=== PATIENT | female | born 1940 | race Caucasian/White ===

== ENCOUNTER → 2023-02-11 09:12 | Outpatient (BNVA) | payer MEDICARE, SELFPAY | PROVIDERS: Referring Provider Family Medicine; Visit Provider Nurse Practitioner Family | DX: L85.3 Xerosis cutis (principal); D22.5 Melanocytic nevi of trunk; L81.4 Other melanin hyperpigmentation; L21.8 Other seborrheic dermatitis; L82.0 Inflamed seborrheic keratosis; Z12.83 Encounter for screening for malignant neoplasm of skin; L57.8 Other skin changes due to chronic exposure to nonionizing radiation; L82.1 Other seborrheic keratosis | CPT/HCPCS: 99204 ==

== ENCOUNTER 2023-05-02 12:22 | Outpatient (CLI) | payer MEDICARE, SELFPAY ==
--- NOTE | 2023-05-02 12:36 | CT_ITS ---
WS: [id number] CT NECK TECHNIQUE: Contrast-enhanced CT of the neck with coronal and sagittal reformatted images. CLINICAL INFORMATION: OTHER DISEASES OF VOCAL CORDS COMPARISON: None. DLP: 120.[address] scans at [facility] use at least one of these dose optimization techniques: automated e xposure control; mA and/or kV adjustment per patient size (includes targeted exams where dose is matc hed to clinical indication); or iterative reconstruction. FINDINGS: Mastoid air cells are well aerated. Paranasal sinuses are well aerated. Normal posterior nasopharynx. Normal parapharyngeal fat. Parotid glands are normal. Normal submandibular glands. Tongue base is no rmal in appearance. No evidence of supraglottic or glottic mass. Normal vallecula and piriform sinuses. Normal subglottic airway. Thyroid gland appears normal. Lung apices are well aerated. Osteopenia. Straightening of the normal cervical lordosis. CT/CT neck w con* [id number] IMPRESSION: 1. Normal salivary glands. 2. No cervical lymphadenopathy. 3. No evidence of supraglottic or glottic mass. 4. No acute neck findings.
[2023-05-02 13:09] LABS: Blood Urea Nitrogen 27 mg/dL (8-23)
[2023-05-02] MEDS: iohexol 350 mg/mL 500 mL Btl (per mL) IV (13:24)
== END 2023-05-02 12:23 | disposition home or self-care (01) ==
PROVIDERS: PCP Family Medicine; Visit Provider Specialist
DX: J38.3 Other diseases of vocal cords (principal)
CPT/HCPCS: 70491; 82565; 84520; Q9967

== ENCOUNTER 2023-05-11 09:44 | Outpatient (RCR) | payer MEDICARE, SELFPAY | END 2023-05-16 23:59 | disposition home or self-care (01) | LOC: SST 09:44 | PROVIDERS: PCP Family Medicine; Visit Provider Specialist | DX: R49.0 Dysphonia (principal) | CPT/HCPCS: 92507; 92524 ==

== ENCOUNTER 2023-05-17 06:00 | Outpatient (RCR) | payer MEDICARE, SELFPAY | END 2023-06-16 23:59 | disposition home or self-care (01) | LOC: SST 06:00 | PROVIDERS: PCP Family Medicine; Visit Provider Specialist | DX: R49.0 Dysphonia (principal); J38.3 Other diseases of vocal cords; J38.7 Other diseases of larynx; J37.0 Chronic laryngitis; R49.8 Other voice and resonance disorders | CPT/HCPCS: 92507 ==

== ENCOUNTER → 2023-05-23 14:32 | Outpatient (BNVA) | payer MEDICARE, SELFPAY | PROVIDERS: Visit Provider Internal Medicine | DX: I44.1 Atrioventricular block, second degree (principal); I25.2 Old myocardial infarction | CPT/HCPCS: 93005; 99204 ==

== ENCOUNTER 2023-06-01 09:31 | Outpatient (CLI) | payer MEDICARE, SELFPAY ==
--- NOTE | 2023-06-01 | ECG_ITS ---
[facility] Test Date: 2023-06-01 Pat Name: Opal Alcantara Department: Room: Gender: Female Founder And Chief Technical Officer: : 1940 Requested By: Aleks Corley Order Number: [id number] Elif MD: Aleks Corley M.D. Interpretive Statements NAME OF STUDY: LEXISCAN SESTAMIBI STRESS TEST INDICATION: [Chest Pain] Procedure: At the baseline, the blood pressure was 202/109 mmHg with a heart rate of 57 bpm. The electrocardiogram showed sinus bradycardia normal axis with normal ST and T's. The Lexiscan was infused over a period of 20 seconds. A total of 0.4 mg of Lexiscan was infused. The stress phase was continued for a total of 5 minutes. Heart rate was at the end of stress phase was 65 bpm and a blood pressure of 133/72 mmHg. The EKG at the peak infusion revealed normal sinus rhythm with no significant ST-T wave changes. Sestamibi was injected 20 seconds after the Lexiscan infusion. Blood pressure at the end of recovery phase was 133/72 mmHg with a heart rate of 65 bpm. Conclusion: 1. Normal EKG response to Lexiscan infusion 2. No Lexiscan induced chest pain or cardiac arrhythmia. 3. Normal blood pressure and heart rate response. 4. Sestamibi/sestamibi perfusion scan pending; see separate report. Electronically Signed On 06-22-2023 14:37:19 CDT by Aleks Corley M.D. [id number]
[2023-06-01 09:47] LABS: Glucose Point of Care 91 mg/dL (70-110)
[2023-06-01 09:48] VITALS: BMI 21.9
--- NOTE | 2023-06-01 09:51 | NMCV_ITS ---
NM brielle perf SPECT r/s* [id number] Opal Alcantara Age: 83 Gender: F : 1940 Exam Date: 06/01/2023 10:58 Ordering Phys: Aleks Corley M.D ([email or web address]) Technologist: SUNI De La Cruz Exam Location: [facility] Indications: SHORTNESS OF BREATH, CHEST PAIN STRESS TEST [facility] IMAGE PROTOCOL Rest/Stress 1 Lexiscan Day Radiopharmaceutical Dose (mCi) Administration Site Administered by Rest: Tc-99m 10.3 IV SUNI De La Cruz Sestamibi Stress:Tc-99m 32.4 IV SUNI Esparza Sestamibi Rest: 01-Jun-2023 60 Discovery 630 Stress: 01-Jun-2023 30 Discovery 630 0.4mg Lexiscan. Images obtained in supine and prone position. SPECT RESULTS Technical Quality: Excellent Raw Data Analysis: Normal Image Corrections: No attenuation or motion correction applied Summed Stress Score: 1 Summed Rest Score: 0 Summed Difference Score: 1 PERFUSION FINDINGS SPECT images demonstrate homogeneous tracer distribution throughout the myocardium. FUNCTIONAL RESULTS (calculated via Gated SPECT) Stress Image LV EF (%): 91 Stress EDV (mL):44 TID: 1.18 Stress ESV (mL):4 FUNCTIONAL FINDINGS: There is normal left ventricular systolic function. IMPRESSIONS 1. Normal myocardial perfusion imaging with no evidence of ischemia 2. LV systolic function is normal. Aleks Corley MD (Electronically Signed) Final Date: 02 June 2023 18:12 S
[2023-06-01] MEDS: regadenoson 0.4 Mg/5 ml Syringe IVP (11:41)
[2023-06-01] MEDS: aminophylline 25 mg/mL SDV 10 mL IVP (11:57)
[2023-06-01 12:39] VITALS: BP 133/72; PULSE 66
== END 2023-06-01 09:32 | disposition home or self-care (01) ==
LOC: CDL 09:31
PROVIDERS: Absent Provider Nurse Practitioner Family; PCP Family Medicine; Visit Provider Internal Medicine
DX: R07.9 Chest pain, unspecified (principal); R06.02 Shortness of breath
CPT/HCPCS: 36415; 36416; 78452; 82962; 93017; 96374; 96375; A9500; J0280; J2785

== ENCOUNTER 2023-06-06 13:18 | Outpatient (CLI) | payer MEDICARE, SELFPAY ==
--- NOTE | 2023-06-06 13:45 | USCV_ITS ---
Opal Alcantara Age: 83 Gender: F : 1940 Exam Date: 06/06/2023 13:59 Ordering Phys: Aleks Corley M.D ([email or web address]) Technologist: Teagan Max Exam Location: [facility] [place] Indication: CP BP: 120 / 76 HR: 62 Rhythm: Sinus Technical Quality: Good MEASUREMENTS (Male / Female) Normal Values 2D ECHO LV Diastolic Diameter PLAX 3.7 cm 4.2 - 5.9 / 3.9 - 5.3 cm LV Systolic Diameter PLAX 1.8 cm IVS Diastolic Thickness 1.3 cm 0.6 - 1.0 / 0.6 - 0.9 cm IVS Systolic Thickness 1.8 cm LVPW Diastolic Thickness 1.1 cm 0.6 - 1.0 / 0.6 - 0.9 cm LVPW Systolic Thickness 1.8 cm LVOT Diameter 2.0 cm LV Ejection Fraction 2D Teich 83.1 % LV Ejection Fraction MOD 2C 69.2 % LV Ejection Fraction 2C AL 70.4 % LA Diameter 3.1 cm LA Width 3.2 cm RA Width 2.8 cm RA Height 4.7 cm Aorta at Sinotubular Diameter 2.7 cm IVC Diameter 1.4 cm M-MODE Aortic Annulus Diameter 2.7 cm LA Ao Ratio MM 1.3 MV E Point Septal Separation 0.1 cm DOPPLER AV Peak Velocity 132.0 cm/s LVOT Peak Velocity 130.0 cm/s AV Area Cont Eq vti 3.5 cm squared AV Area Cont Eq pk 3.2 cm squared MV Peak Velocity 123.0 cm/s MV Area PHT 2.7 cm squared Mitral E to A Ratio 0.6 MV E' Velocity 41.5 cm/s Mitral E to MV E' Ratio 11.2 Mitral E to LV E' Lateral Ratio 9.6 Mitral E to LV E' Septal Ratio 13.4 TR Peak Velocity 135.0 cm/s TR Peak Gradient 7.3 mmHg Right Atrial Pressure 5.0 mmHg Pulmonary Artery Systolic Pressu 12.3 mmHg PV Peak Velocity 54.0 cm/s RV Acceleration Time 0.1 s RV Ejection Time 0.3 s RV AcT/ET 0.2 FINDINGS Left Ventricle Left ventricle is normal in size. LV systolic function is normal with EF of 55 to 60%. No regional wall motion abnormalities are seen. Grade 1 diastolic dysfunction Right Ventricle Normal in size and function Right Atrium Normal in size Left Atrium Normal in size Mitral Valve Structurally normal mitral valve. Mild mitral regurgitation. Aortic Valve Structurally normal aortic valve. No significant stenosis or regurgitation Tricuspid Valve Mild tricuspid regurgitation. Insufficient TR jet to evaluate RVSP. Pulmonic Valve Not well visualized Pericardium Normal Aorta Normal in size IVC Appears to be normal CONCLUSIONS LV systolic function is normal with EF 55 to 60%. Grade 1 diastolic dysfunction. Mild mitral regurgitation Mild tricuspid regurgitation No comparison studies are available Aleks Corley MD (Electronically Signed) Final Date: 24 June 2023 13:08 S
== END 2023-06-06 13:19 | disposition home or self-care (01) ==
PROVIDERS: PCP Family Medicine; Visit Provider Internal Medicine
DX: R06.02 Shortness of breath (principal); R07.9 Chest pain, unspecified; I08.1 Rheumatic disorders of both mitral and tricuspid valves
CPT/HCPCS: 93306

== ENCOUNTER 2023-06-17 06:00 | Outpatient (RCR) | payer MEDICARE, SELFPAY | END 2023-07-16 23:59 | disposition home or self-care (01) | LOC: SST 06:00 | PROVIDERS: PCP Family Medicine; Visit Provider Specialist | DX: J38.3 Other diseases of vocal cords (principal) | CPT/HCPCS: 92507 ==

== ENCOUNTER 2023-07-17 06:00 | Outpatient (RCR) | payer MEDICARE, SELFPAY | END 2023-08-04 09:16 | disposition home or self-care (01) | LOC: SST 06:00 | PROVIDERS: PCP Family Medicine; Visit Provider Specialist | DX: J38.3 Other diseases of vocal cords (principal) | CPT/HCPCS: 92507 ==

== ENCOUNTER → 2023-07-18 12:45 | Outpatient (BNVA) | payer MEDICARE, SELFPAY | PROVIDERS: PCP Family Medicine; Visit Provider Internal Medicine | DX: R07.89 Other chest pain (principal) | CPT/HCPCS: 99213; 99214 ==

== ENCOUNTER 2023-08-23 09:59 | Outpatient (CLI) | payer MEDICARE, SELFPAY ==
--- NOTE | 2023-08-23 10:12 | XR_ITS ---
WS: [id number] Chest 2 views, 08/23/2023 Clinical Data: CHEST PAIN, LEFT Comparison: None. Findings: No nodules, masses or effusions are seen. The heart is normal. The pulmonary vascularity is not increased. No pneumonia or pneumothorax is seen. The aortic arch and descending thoracic aorta s how tortuosity. There are clips in the right upper quadrant from a cholecystectomy. Impression: Atherosclerosis.
== END 2023-08-23 10:00 | disposition home or self-care (01) ==
LOC: RAD 10:03
PROVIDERS: PCP Family Medicine; Visit Provider Nurse Practitioner Family
DX: R07.89 Other chest pain (principal); I70.90 Unspecified atherosclerosis
CPT/HCPCS: 71046

== ENCOUNTER 2023-10-26 13:08 | Emergency (ER) | payer MEDICARE, SELFPAY ==
[2023-10-26 13:17] VITALS: BMI 22.8
[2023-10-26 13:20] VITALS: BP 147/72; PULSE 77; RESP 16; TEMP 37.1; O2SAT 99
--- NOTE | 2023-10-26 13:47 | XRR_ITS ---
PROCEDURE INFORMATION: Exam: XR Left Shoulder Exam date and time: 10/26/2023 2:10 PM Age: 83 years old Clinical indication: Left; Patient HX: Lt shoulder and lt rib pain into armpit, unable to lift lt arm, denies injury TECHNIQUE: Imaging protocol: Radiologic exam of the left shoulder. Views: 2 or more views. COMPARISON: CR XR ribs LT mn 3V w CXR1V [id number] 10/26/2023 2:10 PM FINDINGS: Bones/joints: No fracture or malalignment. Mild degenerative changes. Soft tissues: No acute findings. XR/XR shoulder LT min 2V* [id number] IMPRESSION: No acute findings.
--- NOTE | 2023-10-26 13:47 | XRR_ITS ---
PROCEDURE INFORMATION: Exam: XR Left Ribs with PA Chest Exam date and time: 10/26/2023 2:10 PM Age: 83 years old Clinical indication: Chest wall pain; Left; Patient HX: Lt shoulder and lt rib pain into armpit, unable to lift lt arm, denies injury TECHNIQUE: Imaging protocol: Radiologic exam of the left ribs with PA chest. Views: 3 views COMPARISON: CR XR chest 2V* [id number] 08/23/2023 10:38 AM FINDINGS: Lungs: No focal consolidation. Pleural spaces: No pleural effusion. No pneumothorax. Heart/Mediastinum: No cardiomegaly. Bones/joints: No displaced rib fractures. XR/XR ribs LT mn 3V w CXR1V [id number] IMPRESSION: No displaced rib fractures.
--- NOTE | 2023-10-26 15:27 | W.ED.EXTPRO ---
HPI - Extremity Problem General: Chief complaint: Extremity Problem,Nontraumatic Stated complaint: upper back/abd pain Time Seen by Provider: 10/26/23 15:20 History of Present Illness: 83-year-old female comes in today with pain to the left shoulder area. Patient reports pain starts in the back of her shoulder and wraps around to the front. Patient has increased pain with movement of the shoulder. Patient has had pain on and off for 2 weeks now. Patient was first seen by her primary care and had x-rays done and then on follow-up seen the physician and at that time they felt that she had a rib out of place and did not adjustment in the office. Patient then followed up with chiropractor's office on Tuesday and he repeated the adjustment but since his adjustment he has had increased pain and discomfort. Patient has had difficulty resting at night and finding a comfortable spot due to the pain. Patient appears nontoxic. Patient moves extremity with minimal discomfort. Distal pulses and sensation are intact. No edema is noted. Review of Systems General: Reports: 10 or more systems reviewed and unremarkable except in HPI and below Musc: Reports: joint pain (Left shoulder) Physical Exam Const: COMMON NORMALS: alert HENMT: COMMON NORMALS: normocephalic HEAD & SCALP: normocephalic Neck/C-Spine: COMMON NORMALS: full ROM Resp: COMMON NORMALS: normal respiratory effort Cardio: COMMON NORMALS: regular rate and regular rhythm RATE: regular rate RHYTHM: regular rhythm Back/Pelvis: THORACIC SPINE/UPPER BACK: Yes paraspinal muscle tenderness Thoracic paraspinal muscle tenderness: left Extremity: LEFT UPPER EXTREMITY: Yes shoulder joint (Increased pain with abduction) Left shoulder joint: Yes ROM Neuro: SENSORIUM/ORIENTATION: Yes alert Skin: COMMON NORMALS: turgor normal GENERAL SKIN EXAM: turgor normal Course Vital Signs: Vital signs: Vital Signs Temperature 98.7 F 10/26/23 13:20 Pulse Rate 77 10/26/23 13:20 Respiratory Rate 16 10/26/23 13:20 Blood Pressure 147/72 10/26/23 13:20 Pulse Oximetry 99 10/26/23 13:20 Oxygen Delivery Me thod Room Air 10/26/23 13:20 MDM - Extremity (Nontraumatic) Medical Decision Making 83-year-old female comes in today with complaints of pain to the left shoulder. Patient has had increased pain since a chiropractic adjustment on Tuesday. Distal pulses and sensation are intact. Tenderness is noted in the left upper back on palpation. Patient has increased pain with abduction of the left shoulder. Distal pulses and sensation are intact. Vital signs are normal except for some elevated blood pressure. Reviewed exam with patient and family with recommendations for treatment and follow-up. Differential diagnosis includes but not limited to muscle strain, intervertebral disc disease, rib fracture, osteoarthritis. X-rays were unremarkable. Patient was stable and discharged to home with recommendations for follow-up or return to the ER. Lab Data Radiology Impressions Ribs X-Ray 10/26/23 13:47 IMPRESSION: No displaced rib fractures. Shoulder X-Ray 10/26/23 13:47 IMPRESSION: No acute findings. All radiology interpretation(s) finalized by discharge Discharge Plan Discharge Patient Disposition: Home Clinical Impression: Muscle strain of left shoulder region Qualifiers: Encounter type: initial encounter Qualified Code(s): S46.912A - Strain of unspecified muscle, fascia and tendon at shoulder and upper arm level, left arm, initial encounter Condition: Stable Prescriptions: New hydrocodone-acetaminophen 5-325 mg tablet 1 tab PO Q8H PRN (Reason: pain (scale score 7-10)) Qty: 7 0RF No Action levothyroxine [Synthroid] 88 mcg tablet 88 mcg PO DAILY isosorbide mononitrate 30 mg tablet extended release 24 hr 30 mg PO DAILY nitroglycerin 0.4 mg tablet, sublingual 0.4 mg sublingual Q5M PRN Rx Instructions: do not exceed 3 doses per episode fluticasone propion-salmeterol [Advair Diskus] 250-50 mcg/dose blister with device 1 inh inhalation BID Joint Support Complex 660-751-89-0.5 mg capsule PO albuterol sulfate [ProAir HFA] 90 mcg/actuation HFA aerosol inhaler 2 puff inhalation Q6H PRN escitalopram oxalate 10 mg tablet 10 mg PO DAILY omeprazole 40 mg capsule,delayed release(DR/EC) 40 mg PO DAILY tranexamic acid 650 mg tablet 650 mg PO Q12H Metamucil 3.4 gram/5.4 gram powder 1 tbsp PO DAILY Rx Instructions: mix into at least 8 oz of water or juice before administering lysine [L-Lysine] 500 mg tablet 1,000 mg PO DAILY el-ezj-foisr-calcium carb-K1 400 mcg-500 mg calcium-20 mcg tablet PO Forrify Prebiotic PO Beano 400 unit tablet 800 unit PO DAILY docusate sodium 100 mg capsule 100 mg PO DAILY B Complex 1.7-20-2-1.2 mg/mL liquid sublingual aspirin 81 mg tablet,delayed release (DR/EC) 81 mg PO DAILY Qty: 90 3RF magnesium glycinate 100 mg tablet 300 mg PO BID Discharge Orders: Discharge ED (Routine); Ordered 10/26/23 Ordered By: Kelton Britt Referrals: Reese Mccormick MD [Primary Care Provider] - Discharge Diet: Usual diet Discharge Activity: Increase activity as tolerated Patient Instructions: Musculoskeletal Pain (ED) Activity Restrictions/Additional Instructions: Use ice or heat for pain. Use acetaminophen and ibuprofen to control pain. Use hydrocodone for severe pain. Try to maintain activity as normal. Follow-up with primary care for further instructions. Return to ED for worsening symptoms or new concerns. Coding Level of Care Code ED Business Operations Director for Jeremy Palomares
[2023-10-26] MEDS: HYDROcodone-acetaminophen 5-325 mg Tablet 1 TAB PO (15:53)
== END 2023-10-26 15:55 | disposition home or self-care (01) ==
PROVIDERS: Emergency Provider Nurse Practitioner Family; PCP Family Medicine
DX: S46.912A Strain of unspecified muscle, fascia and tendon at shoulder and upper arm level, left arm, initial encounter (principal); Z79.82 Long term (current) use of aspirin; X58.XXXA Exposure to other specified factors, initial encounter
CPT/HCPCS: 71101; 73030; 99284

== ENCOUNTER → 2024-02-20 11:21 | Outpatient (BNVA) | payer MEDICARE, SELFPAY | PROVIDERS: PCP Family Medicine; Visit Provider Nurse Practitioner Family | DX: D48.5 Neoplasm of uncertain behavior of skin (principal); L57.0 Actinic keratosis; Z12.83 Encounter for screening for malignant neoplasm of skin; L85.3 Xerosis cutis; D22.5 Melanocytic nevi of trunk; L81.4 Other melanin hyperpigmentation; L82.1 Other seborrheic keratosis; L21.8 Other seborrheic dermatitis; L29.8 Other pruritus | CPT/HCPCS: 11102; 17000; 99214 ==

== ENCOUNTER 2024-03-17 08:10 | Emergency (ER) | payer MEDICARE, SELFPAY ==
[2024-03-17] VITALS (7 sets, daily range): BP systolic 117–163; BP diastolic 62–75; PULSE 67–75; RESP 18–25; TEMP 36.6; O2SAT 96–100; BMI 21.9
--- NOTE | 2024-03-17 08:29 | XRR_ITS ---
PROCEDURE INFORMATION: Exam: XR Chest Exam date and time: 03/17/2024 8:45 AM Age: 84 years old Clinical indication: Dyspnea; Additional info: Dyspnea/cough TECHNIQUE: Imaging protocol: Radiologic exam of the chest. Views: 1 view. COMPARISON: CR XR ribs LT mn 3V w CXR1V [id number] 10/26/2023 2:10 PM FINDINGS: Lungs: Unremarkable. No consolidation. Pleural spaces: Unremarkable. No pleural effusion. No pneumothorax. Heart/Mediastinum: Unremarkable. No cardiomegaly. Bones/joints: Unremarkable. XR/XR chest 1V portable [id number] IMPRESSION: No acute findings.
--- NOTE | 2024-03-17 08:31 | ECG_ITS ---
[facility] Test Date: 2024-03-17 Pat Name: Opal Alcantara Department: Room: Gender: Female Records Associate: : 1940 Requested By: Jacob Rg Order Number: [id number] Reading MD: Thiago George M.D. Measurements Intervals [place] Rate: 72 P: 92 SC: 168 QRS: -22 QRSD: 84 T: 79 QT: 378 QTc: 414 Interpretive Statements SINUS RHYTHM WITH OCCASIONAL SUPRAVENTRICULAR PREMATURE COMPLEXES ANTEROSEPTAL MYOCARDIAL INFARCTION , OF INDETERMINATE AGE [40+ ms Q WAVE IN V1-V4] Compared to ECG 05/23/2023 14:41:26 No significant changes Electronically Signed On 03-17-2024 9:28:05 CDT by Thiago George M.D. [id number]
--- NOTE | 2024-03-17 08:51 | ED_ITS ---
HPI - SOB/Dyspnea 2 General: Chief Complaint: Shortness of Breath/Dyspnea Stated Complaint: sob Time Seen by Provider: 03/17/24 08:16 Source: patient Mode of arrival: ambulatory History of Present Illness: HPI Narrative: 84-year-old female presents emergency ro om complaining of shortness of breath. Sudden onset of shortness of breath morning after she got up and had had coffee. She has some numbness and tingling. She has a history of asthma she had tried using her rescue inhaler with no improvement. She is not on any anticoagulants has no history of DVT or PE. She denies chest or abdominal pain no fever sweats or chills MD elicited complaint: shortness of breath and cough Pertinent past history: asthma Associated symptoms: Deny abdominal pain, chest congestion, chest pain, cough, diaphoresis, dizziness, extremity pain, fever(s), hemoptysis, lightheadedness, myalgias, nausea, orthopnea, palpitations, paresthesias, polydipsia, polyuria, rash, sense of impending doom, syncope or vomiting Treatment prior to arrival: none Review of Systems 2 Const: Denies: fever(s), chills or diaphoresis Card: Denies: chest pain, palpitations, lightheadedness, syncope or orthopnea Resp: Reports: dyspnea; Denies: productive cough, non-productive cough, wheezing, hemoptysis or chest congestion GI: Denies: abdominal pain, nausea or vomiting : Denies: flank pain, dysuria, urinary frequency or urinary urgency Musc: Denies: neck pain, back pain or extremity pain Skin/Breast: Denies: rash Neuro: Denies: dizziness Endo: Denies: polyuria or polydipsia PFSH ED 2 PFSH: Medical History Anxiety disorder Asthma Depression GERD (gastroesophageal reflux disease) Hypothyroidism Cataract Surgical History H/O: hysterectomy H/O lumpectomy History of bowel resection Physical Exam 2 Const: COMMON NORMALS: no acute distress GENERAL APPEARANCE: cooperative and comfortable ORIENTATION/CONSCIOUSNESS: Yes awake, Yes oriented to person, Yes oriented to place and Yes oriented to time HENMT: COMMON NORMALS: normocephalic, atraumatic and hearing grossly normal bilaterally HEAD & SCALP: normocephalic and atraumatic Resp: COMMON NORMALS: normal respiratory effort, No retractions, No use of accessory muscles and clear to auscultation bilaterally AUSCULTATION: clear to auscultation bilaterally Cardio: COMMON NORMALS: regular rate, regular rhythm and No murmurs present (Cardio) RATE: regular rate RHYTHM: regular rhythm GI: COMMON NORMALS: Soft to palpation and No hepatosplenomegaly present A USCULTATION: Yes normoactive bowel sounds PALPATION: Yes Soft to palpation, No Tenderness to palpation present (GI), No Guarding due to palpation present (GI) and Yes No hepatosplenomegaly present Extremity: COMMON NORMALS: normal to inspection, capillary refill normal, no clubbing, cyanosis or edema, no calf tenderness and no pedal edema Neuro: SENSORIUM/ORIENTATION: Yes oriented to person, Yes oriented to place and Yes oriented to time Skin: COMMON NORMALS: no rashes or lesions noted GENERAL SKIN EXAM: no rashes or lesions noted Course 2 Vital Signs: Vital signs: Vital Signs Temperature 97.8 F 03/17/24 08:19 Pulse Rate 71 03/17/24 11:25 Respiratory Rate 25 H 03/17/24 09:22 Blood Pressure 117/62 03/17/24 11:25 Pulse Oximetry 97 03/17/24 11:25 Oxygen Delivery Me thod Room Air 03/17/24 09:22 MDM - SOB/Dyspnea Medical Decision Making EKG and cardiac enzymes not show any sign of acute coronary syndrome. Patient was hyperventilating significantly on arrival as well as having carpal pedal spasm. This improved with the Ativan given. Chest x-ray is unremarkable. Will discharge patient home Ativan to use as needed. Family asked about checking UA. Urine sample was collected the nurse to deliver to the lab and called them to have it done. They did not want to wait for the result and they were discharged home with plan to call them later. Unfortunately lab discarded the sample and it was not run we will contact the family have him follow-up with primary care doctor if they wish to have urine screened. Medical Records I reviewed the patient's medical records. Lab Data I reviewed the patient's lab results. 03/17/24 08:45 03/17/24 08:45 Labs/Radiology: Radiology Impressions Chest X-Ray 03/17/24 08:29 IMPRESSION: No acute findings. Laboratory Results WBC 7.17 10^3/uL (3.29-11.43) 03/17/24 08:45 RBC 4.63 10^6/uL (3.85-5.65) 03/17/24 08:45 Hgb 13.10 g/dL (11.27-16.99) 03/17/24 08:45 Hct 39.9 % (36-47) 03/17/24 08:45 MCV 86.2 fl (85-98) 03/17/24 08:45 MCH 28.3 pg (27-33) 03/17/24 08:45 MCHC 32.8 g/dL (30-55) 03/17/24 08:45 RDW 14.2 % (12.1-15.1) 03/17/24 08:45 Plt Count 219 10^3/cmm (157-399) 03/17/24 08:45 MPV 9.1 fL (7.4-10.4) 03/17/24 08:45 Neut % (Auto) 61.3 % 03/17/24 08:45 Lymph % (Auto) 26.2 % 03/17/24 08:45 Wolfe % (Auto) 9.3 % 03/17/24 08:45 Eos % (Auto) 1.5 % 03/17/24 08:45 Baso % (Auto) 0.7 % 03/17/24 08:45 Neut # (Auto) 4.39 10^3/uL (1.8-7.7) 03/17/24 08:45 Lymph # (Auto) 1.9 10^3/uL (0.8-4.8) 03/17/24 08:45 Wolfe # (Auto) 0.7 10^3/uL (0.2-0.9) 03/17/24 08:45 Eos # (Auto) 0.1 10^3/uL (0.0-0.8) 03/17/24 08:45 Baso # (Auto) 0.1 10^3/uL (0.0-0.1) 03/17/24 08:45 Nucleated RBC % (auto) 0 % 03/17/24 08:45 Nucleated RBCs # 0.0 /100WBC 03/17/24 08:45 Specimen Type Arterial 03/17/24 09:05 Sample Site Radial, left 03/17/24 09:05 ABG pH 7.66 (7.35-7.45) H* 03/17/24 09:05 ABG pCO2 16.7 mmHg (35-45) L* 03/17/24 09:05 ABG pO2 106.0 mmHg (80.0-100.0) H 03/17/24 09:05 ABG PO2/FiO2 Ratio 0 03/17/24 09:05 ABG HCO3 18.9 mmol/L (22-26) L 03/17/24 09:05 ABG O2 Saturation > 100.0 03/17/24 09:05 ABG Base Excess 0.9 mmol/L (-2.0-2.0) 03/17/24 09:05 Amish Test Pos 03/17/24 09:05 A-a O2 Gradient 2.5 mmHg (5-10) L 03/17/24 09:05 Hematocrit 41.2 % (37-47) 03/17/24 09:05 Hgb O2 Saturation 98.6 % (95-100) 03/17/24 09:05 Carboxyhemoglobin 1.1 %THgb (0.4-20.1) 03/17/24 09:05 Methemoglobin 0.4 % (0.4-1.5) 03/17/24 09:05 Total Hemoglobin 13.4 g/dL (12-16) 03/17/24 09:05 Sodium 136.0 mmol/L (131-143) 03/17/24 09:05 Potassium 3.2 mmol/L (3.5-5.0) L 03/17/24 09:05 Glucose 103.0 mg/dL (70-115) 03/17/24 09:05 Ionized Calcium 1.1 mmol/L (1.1-1.4) 03/17/24 09:05 O2 Delivery Device Room air 03/17/24 09:05 FiO2 21.0 % 03/17/24 09:05 Donkey Doctor ID Walci 03/17/24 09:05 Sodium 137 mmol/L (136-145) 03/17/24 08:45 Potassium 3.9 mmol/L (3.5-5.1) 03/17/24 08:45 Chloride 103 mmol/L (98-107) 03/17/24 08:45 Carbon Dioxide 21 mmol/L (22-29) L 03/17/24 08:45 Anion Gap 16.9 (5-19) 03/17/24 08:45 BUN 24 mg/dL (8-23) H 03/17/24 08:45 Creatinine 0.8 mg/dL (0.5-0.9) 03/17/24 08:45 GFR Calculation Not Reportable 03/17/24 08:45 Glucose 107 mg/dL (65-115) 03/17/24 08:45 Calculated Osmolality 289 mOsm/kg (285-295) 03/17/24 08:45 Calcium 8.4 mg/dL (8.5-10.5) L 03/17/24 08:45 Total Bilirubin 0.4 mg/dL (0.15-1.2) 03/17/24 08:45 AST 26 U/L (0-32) 03/17/24 08:45 ALT 19 U/L (0-33) 03/17/24 08:45 Alkaline Phosphatase 94 U/L (35-105) 03/17/24 08:45 Troponin T Baseline 9 ng/L (0-10) 03/17/24 08:45 Troponin T 120 Minute 8.08 ng/L (0-10) 03/17/24 10:50 Delta Troponin T -0.92 ABS# (0-10) L 03/17/24 10:50 NT-Pro-B Natriuret Pep 368 pg/mL (0-450) 03/17/24 08:45 Total Protein 6.3 g/dL (6.6-8.7) L 03/17/24 08:45 Albumin 3.8 g/dL (3.5-5.2) 03/17/24 08:45 Globulin 2.5 g/dL (1.3-4.6) 03/17/24 08:45 All radiology interpretation(s) finalized by discharge Discharge Plan Discharge Patient Disposition: Home Clinical Impression: Hyperventilation syndrome Condition: Stable Prescriptions: New Ativan 1 mg tablet 1 mg PO Q8H PRN (Reason: anxiety) Qty: 10 0RF No Action levothyroxine [Synthroid] 88 mcg tablet 88 mcg PO DAILY isosorbide mononitrate 30 mg tablet extended release 24 hr 30 mg PO DAILY nitroglycerin 0.4 mg tablet, sublingual 0.4 mg sublingual Q5M PRN Rx Instructions: do not exceed 3 doses per episode fluticasone propion-salmeterol [Advair Diskus] 250-50 mcg/dose blister with device 1 inh inhalation BID Joint Support Complex [id number] mg capsule PO albuterol sulfate [ProAir HFA] 90 mcg/actuation HFA aerosol inhaler 2 puff inhalation Q6H PRN escitalopram oxalate 10 mg tablet 10 mg PO DAILY omeprazole 40 mg capsule,delayed release(DR/EC) 40 mg PO DAILY tranexamic acid 650 mg tablet 650 mg PO Q12H Metamucil 3.4 gram/5.4 gram powder 1 tbsp PO DAILY Rx Instructions: mix into at least 8 oz of water or juice before administering lysine [L-Lysine] 500 mg tablet 1,000 mg PO DAILY [id number] carb-K1 400 mcg-500 mg calcium-20 mcg tablet PO Forrify Prebiotic PO Beano 400 unit tablet 800 unit PO DAILY docusate sodium 100 mg capsule 100 mg PO DAILY B Complex 1.7-20-2-1.2 mg/mL liquid sublingual aspirin 81 mg tablet,delayed release (DR/EC) 81 mg PO DAILY Qty: 90 3RF magnesium glycinate 100 mg tablet 300 mg PO BID hydrocodone-acetaminophen 5-325 mg tablet 1 tab PO Q8H PRN (Reason: pain (scale score 7-10)) Qty: 7 0RF Discharge Orders: Discharge ED (Routine); Ordered 03/17/24 Ordered By: Jacob Hanna Referrals: Reese Mccormick MD [Primary Care Provider] - Discharge Diet: Usual diet Discharge Activity: Resume usual activity Patient Instructions: Hyperventilation (ED), Opioid Safety, Pain Management Activity Restrictions/Additional Instructions: Thank you for choosing [facility] for your healthcare needs today. It is very important that you follow up as instructed or that you return to the Emergency Department should you have concerns or if your condition changes or worsens in any way. You were seen today for shortness of breath. Your blood gases showed that you were hyperventilating. This will cause a sensation of severe anxiety as well as chest discomfort and a sensation of being very short of breath. Your cardiac enzymes and EKG did not show acute abnormality your chest x-ray was normal. You were given a prescription for Ativan to use as needed if you have any further episodes. If you have recurrent episodes like this you should try to slow your breathing by breathing anterior mouth and blowing out slowly through your nose. Follow-up with your primary care doctor. Coding Level of Care Code ED Wildlife Biology Technician for Jeermy Palomares
[2024-03-17 08:57] LABS: Basophils # 0.1 10^3/uL (0.0-0.1); Basophils % 0.7 %; Eosinophils # 0.1 10^3/uL (0.0-0.8); Eosinophils % 1.5 %; Hematocrit 39.9 % (36-47); Lymphocytes # 1.9 10^3/uL (0.8-4.8); Lymphocytes % 26.2 %; Mean Corpuscular HGB Conc 32.8 g/dL (30-55); Mean Corpuscular Hemoglobin 28.3 pg (27-33); Mean Corpuscular Volume 86.2 fl (85-98); Mean Platelet Volume 9.1 fL (7.4-10.4); Monocytes # 0.7 10^3/uL (0.2-0.9); Monocytes % 9.3 %; Neutrophils # 4.39 10^3/uL (1.8-7.7); Neutrophils % 61.3 %; Nucleated Red Blood Cells % 0 %; Platelet Count 219 10^3/cmm (157-399); Red Blood Count 4.63 10^6/uL (3.85-5.65); Red Cell Distribution Width 14.2 % (12.1-15.1); White Blood Count 7.17 10^3/uL (3.29-11.43)
[2024-03-17 09:16] LABS: Alveolar-Arterial Oxygen Gradi 2.5 mmHg (5-10); Arterial Blood Gas Hematocrit 41.2 % (37-47); Base Excess ABG 0.9 mmol/L (-2.0-2.0); Blood Gas Allen Test Pos; Blood Gas Operator Identificat WALCI; Blood Gas Sample Site Radial, left; Blood Gas Sample Type Arterial; Carboxyhemoglobin 1.1 %THgb (0.4-20.1); HCO3 ABG 18.9 mmol/L (22-26); HGB O2 Sat 98.6 % (95-100); Ionized Calcium Level - ABG 1.1 mmol/L (1.1-1.4); Methemoglobin 0.4 % (0.4-1.5); Oxygen Device ROOM AIR; Oxygen Saturation ABG > 100.0; PO2 FiO2 Ratio Arterial Blood 0; Potassium Level - ABG 3.2 mmol/L (3.5-5.0); Total Hemoglobin 13.4 g/dL (12-16)
[2024-03-17 09:17] LABS: ABG PCO2 16.7 mmHg (35-45); ABG PH Result 7.66 (7.35-7.45)
[2024-03-17 09:17] LABS: Alanine Aminotransferase 19 U/L (0-33); Albumin Level 3.8 g/dL (3.5-5.2); Alkaline Phosphatase 94 U/L (35-105); Blood Urea Nitrogen 24 mg/dL (8-23); Calcium 8.4 mg/dL (8.5-10.5); Carbon Dioxide 21 mmol/L (22-29); Chloride 103 mmol/L (98-107); Creatinine Clr Calc Pharmacy 41.3039; Globulin 2.5 g/dL (1.3-4.6); Glucose 107 mg/dL (65-115); Osmolality Calculated 289 mOsm/kg (285-295); Sodium 137 mmol/L (136-145); Total Bilirubin 0.4 mg/dL (0.15-1.2); Total Protein 6.3 g/dL (6.6-8.7)
[2024-03-17] MEDS: ipratropium-albuterol 3 mL Neb INHALATION (09:20)
[2024-03-17 09:21] LABS: Anion Gap 16.9 (5-19); Aspartate Amino Transferase 26 U/L (0-32); Potassium 3.9 mmol/L (3.5-5.1)
--- NOTE | 2024-03-17 09:31 | PC.NURSE ---
pt's daughter came to nurse with concern of pt having acute confusion since arrival to ED. pt AOx4 upon nurse assessment. Dr. Hanna notified.
--- NOTE | 2024-03-17 09:32 | PC.NURSE ---
pt family came to nurse's station for nurse assistance, states pt cannot breathe. upon this nurse's assessment pt very anxious, respirations tachypneic, deep, labored. 25/min, oxygen saturation 98% on room air. this nurse attempted to verbally de-escalate pt, pt unreceptive. this nurse informed Dr. Hanna, Dr. Hanna verbalized new order for Ativan & presented to patient's bedside.
[2024-03-17] MEDS: LORazepam 2 mg/mL INJ 10 mL MDV 1 MG IVP (09:37)
[2024-03-17 09:40] LABS: NT Pro B Type Natriuretic Pept 368 pg/mL (0-450)
[2024-03-17 10:53] LABS: Troponin(5th) Baseline 9 ng/L (0-10)
[2024-03-17 11:12] LABS: Troponin 5 2HR 8.08 ng/L (0-10)
[2024-03-17 11:13] LABS: Troponin 5 2HR Delta -0.92 ABS# (0-10)
== END 2024-03-17 11:33 | disposition home or self-care (01) ==
PROVIDERS: Emergency Provider Family Medicine; PCP Family Medicine
DX: F45.8 Other somatoform disorders (principal); Z79.82 Long term (current) use of aspirin
CPT/HCPCS: 36600; 71045; 80051; 80053; 82330; 82805; 83880; 84484; 85025; 93005; 94640; 96374; 99285; J2060

== ENCOUNTER 2024-05-16 08:50 | Outpatient (CLI) | payer MEDICARE, SELFPAY ==
[2024-05-16 09:20] VITALS: PULSE 63; RESP 18; O2SAT 99
[2024-05-16] MEDS: albuterol 2.5 mg/3 mL Neb INHALATION (09:20)
[2024-05-16 09:24] VITALS: PULSE 65
== END 2024-05-16 08:51 | disposition home or self-care (01) ==
LOC: RT 08:57
PROVIDERS: PCP Family Medicine; Visit Provider Family Medicine
DX: R06.02 Shortness of breath (principal)
CPT/HCPCS: 94060; J7613

== ENCOUNTER 2024-06-11 09:54 | Outpatient (CLI) | payer MEDICARE, SELFPAY ==
--- NOTE | 2024-06-11 09:58 | FL_ITS ---
WS: [id number] Exam: FL barium swallow modifd [id number] Date/Time of Exam: 06/11/2024 10:00 AM Reason For Exam: Other dysphagia Fluoroscopy time: 1min [id number] minutes # of spot films: 1 Modified barium swallow was performed in conjunction with the speech therapy service. The patient experienced a single episode of penetration into the laryngeal inlet when ingesting thin liquid barium solution. There was no other sign of penetration. No aspiration was observed. The patie nt swallowed a barium tablet without difficulty. The tablet was retained into a small hiatal hernia b ut was cleared with additional swallow of thin liquid barium. FL/FL barium swallow modifd [id number] IMPRESSION: 1. Single episode of mild penetration into the laryngeal inlet when the patient swallowed thin liquid barium solution. No aspiration was noted. 2. Small hiatal hernia noted.
== END 2024-06-11 09:55 | disposition home or self-care (01) ==
LOC: RAD 09:55
PROVIDERS: PCP Family Medicine; Visit Provider Family Medicine
DX: R13.10 Dysphagia, unspecified (principal)
CPT/HCPCS: 74230; 92611

== ENCOUNTER 2024-07-17 06:00 | Outpatient (RCR) | payer MEDICARE, SELFPAY | END 2024-08-16 23:59 | disposition home or self-care (01) | LOC: TST 06:00 | PROVIDERS: Visit Provider Otolaryngology | DX: R49.0 Dysphonia (principal); J38.3 Other diseases of vocal cords; J37.0 Chronic laryngitis; R49.8 Other voice and resonance disorders | CPT/HCPCS: 99214 ==

== ENCOUNTER → 2025-02-19 10:48 | Outpatient (BNVA) | payer MEDICARE, SELFPAY | PROVIDERS: Visit Provider Nurse Practitioner Family | DX: L82.1 Other seborrheic keratosis (principal); D36.12 Benign neoplasm of peripheral nerves and autonomic nervous system, upper limb, including shoulder; D17.22 Benign lipomatous neoplasm of skin and subcutaneous tissue of left arm; L57.8 Other skin changes due to chronic exposure to nonionizing radiation; L82.0 Inflamed seborrheic keratosis; Z78.9 Other specified health status; L53.8 Other specified erythematous conditions | CPT/HCPCS: 17110; 99213 ==

== ENCOUNTER 2025-04-15 08:13 | Oncology outpatient (recurring) (ONCR) | payer MEDICARE, SELFPAY ==
[2025-04-15 10:17] LABS: Basophils # 0.1 10^3/uL (0.0-0.1); Basophils % 0.9 %; Eosinophils # 0.1 10^3/uL (0.0-0.8); Eosinophils % 0.8 %; Hematocrit 41.4 % (36-47); Lymphocytes # 5.2 10^3/uL (0.8-4.8); Lymphocytes % 53.6 %; Mean Corpuscular HGB Conc 33.1 g/dL (30-55); Mean Corpuscular Hemoglobin 28.3 pg (27-33); Mean Corpuscular Volume 85.5 fl (85-98); Mean Platelet Volume 9.6 fL (7.4-10.4); Monocytes # 0.7 10^3/uL (0.2-0.9); Monocytes % 6.9 %; Neutrophils # 3.63 10^3/uL (1.8-7.7); Neutrophils % 37.4 %; Nucleated Red Blood Cells % 0 %; Platelet Count 185 10^3/cmm (157-399); Red Blood Count 4.84 10^6/uL (3.85-5.65); Red Cell Distribution Width 13.3 % (12.1-15.1); White Blood Count 9.71 10^3/uL (3.29-11.43)
[2025-04-15 10:55] LABS: Alanine Aminotransferase 22 U/L (0-33); Albumin Level 4.2 g/dL (3.5-5.2); Alkaline Phosphatase 105 U/L (35-105); Anion Gap 17.9 (5-19); Aspartate Amino Transferase 26 U/L (0-32); Blood Urea Nitrogen 20 mg/dL (8-23); Calcium 9.6 mg/dL (8.5-10.5); Carbon Dioxide 25 mmol/L (22-29); Chloride 102 mmol/L (98-107); Globulin 2.8 g/dL (1.3-4.6); Glucose 98 mg/dL (65-115); Lactate Dehydrogenase 185 U/L (135-214); Osmolality Calculated 295 mOsm/kg (285-295); Potassium 3.9 mmol/L (3.5-5.1); Sodium 141 mmol/L (136-145); Thyroid Stimulating Hormone 2.36 uIU/mL (0.27-4.20); Total Bilirubin 0.5 mg/dL (0.15-1.2); Vitamin B12 1399 pg/mL (232-1245)
[2025-04-15 11:00] LABS: Folate Level 19.4 ng/mL (4.8-37.3)
[2025-04-16 15:46] LABS: Leukemia Profile (BBPL) See Report
== END 2025-04-15 23:59 | disposition home or self-care (01) ==
PROVIDERS: Visit Provider Internal Medicine Medical Oncology
DX: D72.820 Lymphocytosis (symptomatic) (principal); R26.81 Unsteadiness on feet; R63.4 Abnormal weight loss; Z68.25 Body mass index [BMI] 25.0-25.9, adult; R53.83 Other fatigue; G47.00 Insomnia, unspecified
CPT/HCPCS: 36415; 80053; 81263; 82232; 82607; 82746; 83615; 84443; 85025; 87798; 88184; 88185; 88264; 88271; 88367; 88374; 99205

== ENCOUNTER 2025-05-06 15:04 | Oncology outpatient (recurring) (ONCR) | payer MEDICARE, SELFPAY ==
--- NOTE | 2025-05-01 12:30 | CTR_ITS ---
PROCEDURE INFORMATION: Exam: CT Chest With Contrast; Diagnostic Exam date and time: 05/01/2025 1:41 PM Age: 85 years old Clinical indication: Prior surgery; Surgery date: 6+ months; Surgery type: RT breast lumpectomy, hyst; Unsteady gait x1 month, lymphocytosis TECHNIQUE: Imaging protocol: Diagnostic computed tomography of the chest with contrast. Radiation optimization: All CT scans at this facility use at least one of these dose optimization techniques: automated exposure control; mA and/or kV adjustment per patient size (includes targeted exams where dose is matched to clinical indication); or iterative reconstruction. Contrast material: OMNI 350; Contrast volume: 100 ml; Contrast route: INTRAVENOUS (IV); COMPARISON: CR XR chest 1V portable [id number] 03/17/2024 8:45 AM RADIATION DOSE METRICS: Total DLP (mGy-cm): 662.29 FINDINGS: Lungs: Unremarkable. No consolidation. No masses. Pleural spaces: Unremarkable. No pneumothorax. No pleural effusion. Heart: Unremarkable. No cardiomegaly. No pericardial effusion. Lymph nodes: Unremarkable. No enlarged lymph nodes. Vasculature: Unremarkable. No aortic aneurysm. Diaphragm: Moderate hiatal hernia. Bones/joints: Unremarkable. No acute fracture. Soft tissues: Unremarkable. PROCEDURE INFORMATION: Exam: CT Abdomen And Pelvis With Contrast Exam date and time: 05/01/2025 1:41 PM Age: 85 years old Clinical indication: Prior surgery; Surgery date: 6+ months; Surgery type: RT breast lumpectomy, hyst; Unsteady gait x1 month, lymphocytosis TECHNIQUE: Imaging protocol: Computed tomography of the abdomen and pelvis with contrast. Radiation optimization: All CT scans at this facility use at least one of these dose optimization techniques: automated exposure control; mA and/or kV adjustment per patient size (includes targeted exams where dose is matched to clinical indication); or iterative reconstruction. Contrast material: OMNI 350; Contrast volume: 100 ml; Contrast route: INTRAVENOUS (IV); COMPARISON: CR XR chest 1V portable [id number] 03/17/2024 8:45 AM RADIATION DOSE METRICS: Total DLP (mGy-cm): 662.29 FINDINGS: Liver: Hepatic cysts. Gallbladder and biliary ducts: Cholecystectomy. Pancreas: 2.3 cm pancreatic body cyst containing a 8 mm focal calcification. Spleen: Normal. No splenomegaly. Adrenal glands: Normal. No mass. Kidneys and ureters: Small renal cysts. Stomach and bowel: Unremarkable. No obstruction. No mucosal thickening. Appendix: No evidence of appendicitis. Intraperitoneal space: Unremarkable. No free air. No significant fluid collection. Vasculature: Unremarkable. No abdominal aortic aneurysm. Lymph nodes: Unremarkable. No enlarged lymph nodes. Urinary bladder: Unremarkable as visualized. Reproductive: Unremarkable as visualized. Bones/joints: Unremarkable. No acute fracture. Soft tissues: Unremarkable. CT/CT chest abdpel w/*[id number] IMPRESSION: No acute findings. IMPRESSION: Cysts within the liver, pancreas, and kidneys. COMMENTS: Consistent with the [employer]'s Incidental Findings Committee white paper (J Am Carri Radiol 2018): Any incidental renal lesion less than 1 cm or classified as too small to characterize, or any incidental cystic renal lesion characterized as simple-appearing, is likely benign. No follow-up imaging is recommended for these lesions per consensus recommendations based on imaging criteria.
--- NOTE | 2025-05-01 13:00 | MR_ITS ---
WS: [id number] MRI BRAIN WITH AND WITHOUT CONTRAST HISTORY: lymphocytosis, history of RIGHT breast lumpectomy. COMPARISON: None available. TECHNIQUE: Multiplanar imaging performed through the brain with MultiHance. No acute infarcts are seen. West-white matter differentiation is well preserved. Moderate T2 and FLAIR signal hyperintensities throughout the supratentorial white matter. No infarct. Mild hippocampal atrophy. Tiny focus of hemosiderin in the RIGHT cerebellum. Ventricles and extra-axial spaces are normal. Clivus and pituitary gland are normal. Moderate bilateral cerebellar atrophy. Postcontrast images are negative for masses or vascular malformations. Dural venous sinuses are normal. Paranasal sinuses: Well aerated with no significant disease. Mastoid air cells: Normal. Calvarium and scalp: Normal. MR/MR head wo/w con [id number] IMPRESSION: 1. No acute infarct or acute hemorrhage. 2. Moderate cerebral and cerebellar atrophy with small vessel changes in the s upratentorial white matter. 3. No enhancing mass or metastatic nodules. 4. Mild hippocampal atrophy. 5. Single focus of hemosiderin in the RIGHT cerebellum.
[2025-05-01] MEDS: iohexol 350 mg/mL 500 mL Btl (per mL) PO (14:00)
[2025-05-01] MEDS: iohexol 350 mg/mL 500 mL Btl (per mL) IV (14:00)
[2025-05-01] MEDS: gadobenate dimeglumine 20 mL vial 13 ML IV (14:27)
== END 2025-05-16 23:59 | disposition home or self-care (01) ==
PROVIDERS: Visit Provider Internal Medicine Medical Oncology
DX: R26.81 Unsteadiness on feet (principal); R63.4 Abnormal weight loss; D72.820 Lymphocytosis (symptomatic); R13.10 Dysphagia, unspecified; K44.9 Diaphragmatic hernia without obstruction or gangrene
CPT/HCPCS: 70553; 71260; 74177; 99214

== ENCOUNTER 2025-06-11 13:03 | Oncology outpatient (recurring) (ONCR) | payer MEDICARE, SELFPAY ==
[2025-06-11 13:43] LABS: Hematocrit 41.4 % (36-47); Hemoglobin 14.00 g/dL (11.27-16.99); Mean Corpuscular HGB Conc 33.8 g/dL (30-55); Mean Corpuscular Hemoglobin 28.3 pg (27-33); Mean Corpuscular Volume 83.8 fl (85-98); Nucleated Red Blood Cells % 0 %; Platelet Count 266 10^3/cmm (157-399); Red Blood Count 4.94 10^6/uL (3.85-5.65); White Blood Count 11.81 10^3/uL (3.29-11.43)
[2025-06-11 14:01] LABS: Alanine Aminotransferase 15 U/L (0-33); Albumin Level 4.0 g/dL (3.5-5.2); Alkaline Phosphatase 99 U/L (35-105); Anion Gap 14.7 (5-19); Aspartate Amino Transferase 21 U/L (0-32); Blood Urea Nitrogen 19 mg/dL (8-23); Calcium 9.2 mg/dL (8.5-10.5); Carbon Dioxide 23 mmol/L (22-29); Chloride 101 mmol/L (98-107); Creatinine Clr Calc Pharmacy 43.6610; Globulin 2.8 g/dL (1.3-4.6); Glucose 123 mg/dL (65-115); Osmolality Calculated 284 mOsm/kg (285-295); Potassium 3.7 mmol/L (3.5-5.1); Sodium 135 mmol/L (136-145); Total Protein 6.8 g/dL (6.6-8.7)
== END 2025-06-16 23:59 | disposition home or self-care (01) ==
PROVIDERS: PCP Family Medicine; Visit Provider Internal Medicine Medical Oncology
DX: R26.81 Unsteadiness on feet (principal); R63.4 Abnormal weight loss; D72.820 Lymphocytosis (symptomatic); R13.10 Dysphagia, unspecified; D64.9 Anemia, unspecified
CPT/HCPCS: 36415; 80053; 83615; 85025; 99213

== ENCOUNTER → 2025-07-23 13:52 | Outpatient (BNVA) | payer MEDICARE, SELFPAY | PROVIDERS: PCP Family Medicine; Visit Provider Internal Medicine | DX: I20.89 Other forms of angina pectoris (principal); I10 Essential (primary) hypertension | CPT/HCPCS: 99213 ==

== ENCOUNTER 2025-09-10 08:57 | Oncology outpatient (recurring) (ONCR) | payer MEDICARE, SELFPAY ==
[2025-09-10 09:19] LABS: Hematocrit 40.4 % (36-47); Hemoglobin 13.20 g/dL (11.27-16.99); Mean Corpuscular HGB Conc 32.7 g/dL (30-55); Mean Corpuscular Hemoglobin 27.7 pg (27-33); Mean Corpuscular Volume 84.9 fl (85-98); Nucleated Red Blood Cells % 0 %; Platelet Count 242 10^3/cmm (157-399); Red Blood Count 4.76 10^6/uL (3.85-5.65); White Blood Count 10.96 10^3/uL (3.29-11.43)
[2025-09-10 10:02] LABS: Alanine Aminotransferase 19 U/L (0-33); Albumin Level 4.3 g/dL (3.5-5.2); Alkaline Phosphatase 97 U/L (35-105); Anion Gap 14.0 (5-19); Aspartate Amino Transferase 19 U/L (0-32); Blood Urea Nitrogen 19 mg/dL (8-23); Calcium 9.4 mg/dL (8.5-10.5); Carbon Dioxide 25 mmol/L (22-29); Chloride 102 mmol/L (98-107); Globulin 2.5 g/dL (1.3-4.6); Glucose 95 mg/dL (65-115); Osmolality Calculated 286 mOsm/kg (285-295); Potassium 4.0 mmol/L (3.5-5.1); Sodium 137 mmol/L (136-145); Total Protein 6.8 g/dL (6.6-8.7)
== END 2025-09-15 23:59 | disposition home or self-care (01) ==
PROVIDERS: PCP Family Medicine; Visit Provider Internal Medicine Medical Oncology
DX: D72.820 Lymphocytosis (symptomatic) (principal); K21.9 Gastro-esophageal reflux disease without esophagitis; R03.0 Elevated blood-pressure reading, without diagnosis of hypertension; Z87.891 Personal history of nicotine dependence
CPT/HCPCS: 36415; 80053; 85025; 99214